=== PATIENT | female | born 1955 | race Caucasian/White ===

== ENCOUNTER 2021-02-17 08:30 | Day surgery (SDC) | payer MEDICARE, MEDICAID ==
[~2021-02-17] VITALS: Ht 157.5 cm; Wt 132.2 kg
[2021-02-17] VITALS (11 sets, daily range): BP systolic 118–151; BP diastolic 64–88; PULSE 16–85; TEMP 98.2
[2021-02-17] MEDS ORDERED: CALCIUM 600MG+D1 TAB PO (09:17)
[2021-02-17] MEDS ORDERED: TYLENOL 500MG500 MG PO (09:17)
[2021-02-17] MEDS ORDERED: NEURONTIN400 MG/CAP PO (09:18)
[2021-02-17] MEDS ORDERED: CYMBALTA 60MG60 MG PO (09:18)
[2021-02-17] MEDS ORDERED: XARELTO20 MG PO (09:18)
[2021-02-17] MEDS ORDERED: THE MEDICINE S200 M2 PO (09:19)
[2021-02-17] MEDS ORDERED: DEXILANT60 MG PO (09:21)
[2021-02-17] MEDS ORDERED: ASPIRIN E.C. 8181 MG PO (09:21)
[2021-02-17] MEDS ORDERED: FLEXERIL 1010 MG/TAB PO (09:21)
[2021-02-17] MEDS ORDERED: VITAMIN D31000 I1 PO (09:22)
[2021-02-17] MEDS ORDERED: OMEGA-3 1000 MG1 CAP PO (09:22)
[2021-02-17] MEDS ORDERED: LASIX 20MG TABL20 MG PO (09:22)
[2021-02-17] MEDS ORDERED: BREZTRI AEROS10.7 GM IH (09:23)
[2021-02-17] MEDS ORDERED: K-DUR20 MEQ PO (09:23)
[2021-02-17] MEDS ORDERED: LOTENSIN5 MG PO (09:24)
[2021-02-17] MEDS ORDERED: IPRATROPIUM BROM3 M1 IH (09:24)
[2021-02-17 09:38] LABS: HEMOGLOBIN 11.8 g/dl (12.5-16.0); MEAN CELL VOLUME 97 fl (80.0-100.0); MEAN CORPUSCULAR HEMOGLOBIN 32 pg (27.0-31.0); MEAN CORPUSCULAR HGB CONC 33 g/dl (33.0-37.0); MEAN PLATELET VOLUME 11.3 fl (7.4-10.4); PLATELET COUNT 191 K/mm3 (130-400); RED BLOOD COUNT 3.72 M/mm3 (4.10-5.30); REDCELL DISTRIBUTION WIDTH-CV 12.7 % (11.5-14.5)
[2021-02-17 09:39] LABS: HEMATOCRIT 36.2 % (37.0-47.0)
[2021-02-17 09:50] LABS: ALBUMIN 4.4 gm/dL (3.5-5.0); BILIRUBIN,TOTAL 0.7 mg/dL (0.0-1.0); CALCIUM 9.2 mg/dL (8.4-10.2); CREATININE, serum 1.72 (0.52-1.25); MAGNESIUM 2.1 mg/dL (1.6-2.3); POTASSIUM 4.9 mmol/L (3.4-5.0); PROTHROMBIN TIME 10.9 SECONDS (9.7-12.8); TOTAL PROTEIN 7.3 gm/dL (6.4-8.2)
[2021-02-17 09:53] LABS: PARTIAL THROMBOPLASTIN TIME 27.7 SECONDS (26.0-37.0)
--- NOTE | 2021-02-17 11:00 | NUR ---
Report from Norah BOUDREAUX. Transferred from [employer] by bed. Right Tband 12 cc CD&I, good pulse and cap refill < 3 secs noted. VSS. Lunch ordered. Daughter bedside
[2021-02-17] MEDS ORDERED: LIPITOR 40MG TA40 MG PO (11:19)
--- NOTE | 2021-02-17 13:45 | NUR ---
12 cc air released from right Tband and dressing applied. INT discontinued intact.
--- NOTE | 2021-02-17 14:15 | NUR ---
Discharge instructions given. Transferred to private car by trae
== END 2021-02-17 14:15 | disposition home or self-care (01) ==
LOC: COL.CAR 08:30
PROVIDERS: Internal Medicine Cardiovascular Disease
DX: R06.09 Other forms of dyspnea (principal); I25.10 Atherosclerotic heart disease of native coronary artery without angina pectoris; D68.51 Activated protein C resistance; J44.9 Chronic obstructive pulmonary disease, unspecified; I25.9 Chronic ischemic heart disease, unspecified; I12.9 Hypertensive chronic kidney disease with stage 1 through stage 4 chronic kidney disease, or unspecified chronic kidney disease; E78.5 Hyperlipidemia, unspecified; N18.9 Chronic kidney disease, unspecified; M79.7 Fibromyalgia; E66.01 Morbid (severe) obesity due to excess calories; Z68.43 Body mass index [BMI] 50.0-59.9, adult; Z87.891 Personal history of nicotine dependence; Z79.01 Long term (current) use of anticoagulants; Z86.711 Personal history of pulmonary embolism; Z91.040 Latex allergy status; Z79.891 Long term (current) use of opiate analgesic; Z79.899 Other long term (current) drug therapy
CPT/HCPCS: C1769; J1644; J2250; J3010; J7040

== ENCOUNTER → 2022-10-31 | Outpatient (CLI) | payer MEDICARE, MEDICAID ==
[~2022-10-31] MED LIST: ASPIRIN E.C. 8181 MG PO; BREZTRI AEROS10.7 GM IH; CALCIUM 600MG+D1 TAB PO; CYMBALTA 60MG60 MG PO; DEXILANT60 MG PO; FLEXERIL 1010 MG/TAB PO; IPRATROPIUM BROM3 M1 IH; K-DUR20 MEQ PO; LASIX 20MG TABL20 MG PO; LIPITOR 40MG TA40 MG PO; LOTENSIN5 MG PO; NEURONTIN400 MG/CAP PO; OMEGA-3 1000 MG1 CAP PO; THE MEDICINE S200 M2 PO; TYLENOL 500MG500 MG PO; VITAMIN D31000 I1 PO; XARELTO20 MG PO
== END ==
LOC: COL.RAD 10:36
DX: J44.9 Chronic obstructive pulmonary disease, unspecified (principal)